=== PATIENT | male | born 1975 | race African-American/Black ===

== ENCOUNTER 2017-07-16 09:06 | Emergency (ER) | payer OTHER ==
[~2017-07-16] VITALS: Ht 195.6 cm; Wt 136.5 kg
[~2017-07-16 09:06] MED LIST: ASPIRIN EC325 MG PO; ATORVASTATIN CA80 MG PO; BACLOFEN20 MG PO; BENADRYL50 MG PO; CLONIDINE HCL0.1 MG PO; CLONIDINE HCL0.2 MG PO; COZAAR100 MG PO; DYAZIDE, MA1 CAPSULE PO; GLUCOSAMINE &1 EACH PO; HYDRALAZINE HC100 MG PO; IBUPROFEN800 MG PO; LABETALOL HCL300 MG PO; NIFEDIPINE ER90 MG PO; QVAR 80 MCG IN7.3 GM IH; RISPERDAL4 MG PO; SIMVASTATIN20 MG PO; TEGRETOL200 MG PO; ULTRAM50 MG PO; VENTOLIN HFA18 GM IH
[2017-07-16 10:26] LABS: BASOPHIL COUNT 0.1 K/uL (0-0.1); EOSINOPHIL (%) 3.6 % (0-5); EOSINOPHIL COUNT 0.3 K/uL (0-0.3); HEMATOCRIT 41.2 % (38.0-50.0); IMMATURE GRANULOCYTE (%) 0.3 % (0.0-0.7); INSTRUMENT ABS NEUTROPHIL CT 5.1 K/uL; LYMPHOCYTE COUNT 1.7 K/uL (1.0-2.8); MCH 28.4 PG (29.0-34.0); MCHC 33.7 G/DL (30.0-36.0); MCV 84.3 FL (86-99); MEAN PLAT.VOLUME 10.1 uM^3 (9.0-12.4); MONOCYTE (%) 10.9 % (3-12); MONOCYTE COUNT 0.9 K/uL (0-0.8); NEUTROPHIL (%) 63.9 % (45-76); NEUTROPHIL COUNT 5.1 K/uL (1.8-6.4); PLATELET COUNT 234 K/uL (156-360); RBC DIS.WIDTH-CV 12.9 % (11.8-14.6); RBC DIS.WIDTH-SD 39.7 % (39-53); RED BLOOD COUNT 4.89 M/uL (4.00-5.50)
[2017-07-16 10:37] LABS: CHLORIDE 104 mEq/L (99-109); POTASSIUM 4.3 mEq/L (3.7-5.4); SODIUM 141 mEq/L (136-147)
[2017-07-16 10:39] LABS: GLUCOSE 77 mg/dL (70-99)
[2017-07-16 10:40] LABS: ANION GAP 9 MEQ/L (2-14)
[2017-07-16 10:43] LABS: GFR ESTIMATE (CALCULATED) > 59 mL/min/
[2017-07-16 10:44] LABS: UREA NITROGEN (BUN) 9 mg/dL (9-23)
[2017-07-16 13:34] VITALS: BP 132/99
== END 2017-07-16 13:34 | disposition short-term general hospital (02) ==
LOC: EME 09:06
PROVIDERS: Emergency Medicine
DX: I63.9 Cerebral infarction, unspecified (principal); I10 Essential (primary) hypertension; Z86.73 Personal history of transient ischemic attack (TIA), and cerebral infarction without residual deficits
CPT/HCPCS: 70450; 71010; 80048; 85025; 93005; 99281; 99285; J7040